=== PATIENT | male | born 1955 | race Caucasian/White ===

== ENCOUNTER 2016-05-10 15:51 | Observation (INO) | payer OTHER ==
[2016-05-10] MEDS ORDERED: NS 1,000 ML IV ONE (16:23)
--- NOTE | 2016-05-10 16:24 | EDPHY ---
H & P Time Seen by Provider: 05/10/16 16:05 HPI/ROS: CHIEF COMPLAINT: Abdominal pain HISTORY OF PRESENT ILLNESS: Awakened at 4:00 a.m. with sharp right lower quadrant crampy abdominal pain. Does not radiate. Did not eat or drink anything so does not know if it is better worse with oral intake but does definitely get worse with movement or walking. Symptoms mild at rest but moderate to severe with movement. Not associated with vomiting or diarrhea or urinary symptoms. REVIEW OF SYSTEMS: Eye: no change in vision ENT: Dry throat. Cardiac: no chest pain or syncope Pulmonary: no cough or SOB Abdomen: HPI Musculoskeletal: no back pain Skin: no rash Neuro: no headache Constitutional: no fever : no urinary symptoms A comprehensive 10 point review of systems is otherwise negative aside from elements mentioned in the history of present illness. PAST MEDICAL HISTORY: Ablation, hypertension, coronary disease with stenting, hyperlipidemia. Micro diskectomy back surgery, bilateral shoulder surgery, inguinal hernia repair by Dr. Stephane Leblanc. Social history: No tobacco. General Appearance: Alert and conversant, cooperative. Eyes: No scleral icterus. ENT, Mouth: Normal mucous membranes. Respiratory: Normal respiratory effort, breath sounds equal, lungs are clear to auscultation. Cardiovascular: Regular rate and rhythm. Gastrointestinal: Right lower quadrant tenderness, referred right lower quadrant pain with left lower quadrant palpation, guarding present and no rebound. Decreased bowel sounds. Normal femoral pulses and no inguinal hernia appreciated. Neurological: Alert and oriented x3. Normally conversant. Face symmetric, normal movement and sensation in all extremities. Skin: Warm and dry, no rashes. Musculoskeletal: No peripheral edema and no joint swelling. Psychiatric: Not agitated. Emergency Department course/MDM: Moderate to high clinical suspicion for appendicitis, plan for i-STAT and CT abdomen pelvis. 1715: Results discussed with patient. Surgical consultation with Dr. biggs who is on-call for his surgeon Dr. Leblanc. Invanz 1 g IV. Smoking Status: Never smoked Constitutional: Initial Vital Signs Temperature (C) 36.9 C 05/10/16 15:58 Heart Rate 78 05/10/16 15:58 Respiratory Rate 16 05/10/16 15:58 Blood Pressure 131/89 H 05/10/16 15:58 O2 Sat (%) 97 05/10/16 15:58 O2 Delivery Mode Room Air Allergies/Adverse Reactions: lobster Allergy (Uncoded 06/07/16 07:15) Home Medications: Medication Instructions Recorded Atorvastatin Calcium [Lipitor 80 80 mg PO HS 10/13/14 mg] Herbals/Supplements -Info Only 1 ea PO DAILY@10/13/14 Losartan Potassium [Cozaar] 50 mg PO DAILY@10/13/14 Multivitamins [Multivitamin (*)] 1 each PO HS 10/13/14 [place]-3 Fatty Acids [Fish Oil 1000 2,000 mg PO DAILY@10/13/14 mg (*)] Cholecalciferol Vit D3 [Vitamin D3 1,000 units PO DAILY 08/23/15 (*)] Aspirin EC [Aspirin EC 325 mg (*)] 325 mg PO HS 02/02/16 Albuterol [Proventil Inhaler HFA 1 - 2 puffs IH Q4H PRN 05/10/16 (*)] Sildenafil Citrate [Viagra] 100 mg PO HS PRN 05/10/16 Medical Decision Making - Diagnostics Imaging: CT reviewed personally by myself and with Dr. Gann at 5:10 p.m. shows early appendicitis. Differential Diagnosis: Differential diagnosis considered for abdominal pain including but not limited to appendicitis, cholecystitis, pancreatitis, gastritis and urinary tract infection. Consult/Admit Bed Type: [place] [id number] - Data Points Laboratory Results: Laboratory Results 05/10/16 16:12 05/10/16 16:12 05/10/16 05/10/16 05/10/16 16:20 16:12 16:12 WBC 7.97 10^3/uL 10^3/uL (3.80-9.50) RBC 5.28 10^6/uL 10^6/uL (4.40-6.38) Hgb 15.8 g/dL g/dL (13.7-17.5) POC Hgb 16.0 gm/dL gm/dL (14.5-17.3) Hct 46.0 % % (40.0-51.0) POC Hct 47 % % (42.8-50.6) MCV 87.1 fL fL (81.5-99.8) MCH 29.9 pg pg (27.9-34.1) MCHC 34.3 g/dL g/dL (32.4-36.7) RDW 13.2 % % (11.5-15.2) Plt Count 205 10^3/uL 10^3/uL (150-400) MPV 9.4 fL fL (8.7-11.7) Neut % (Auto) 72.5 % % (39.3-74.2) Lymph % (Auto) 19.1 % % (15.0-45.0) Mower % (Auto) 7.2 % % (4.5-13.0) Eos % (Auto) 0.4 % L % (0.6-7.6) Baso % (Auto) 0.5 % % (0.3-1.7) Nucleat RBC Rel Count 0.0 % % (0.0-0.2) Absolute Neuts (auto) 5.79 10^3/uL 10^3/uL (1.70-6.50) Absolute Lymphs (auto) 1.52 10^3/uL 10^3/uL (1.00-3.00) Absolute Monos (auto) 0.57 10^3/uL 10^3/uL (0.30-0.80) Absolute Eos (auto) 0.03 10^3/uL 10^3/uL (0.03-0.40) Absolute Basos (auto) 0.04 10^3/uL 10^3/uL (0.02-0.10) Absolute Nucleated RBC 0.00 10^3/uL 10^3/uL (0-0.01) Immature Gran % 0.3 % % (0.0-1.1) Immature Gran # 0.02 10^3/uL 10^3/uL (0.00-0.10) POC Sodium 142 mEq/L mEq/L (134-144) Sodium 141 mEq/L mEq/L (134-144) POC Potassium 3.8 mEq/L mEq/L (3.3-5.0) Potassium 4.2 mEq/L mEq/L (3.5-5.2) POC Chloride 103 mEq/L mEq/L (96-108) Chloride 104 mEq/L mEq/L (97-110) Carbon Dioxide 24 mEq/l mEq/l (22-31) Anion Gap 13 mEq/L mEq/L (8-16) POC BUN 15 mg/dL mg/dL (7-23) BUN 15 mg/dL mg/dL (7-23) Creatinine 0.9 mg/dL mg/dL (0.7-1.3) POC Creatinine 1.0 mg/dL mg/dL (0.8-1.5) Estimated GFR > 60 Glucose 90 mg/dL mg/dL (70-100) POC Glucose 93 mg/dL mg/dL (70-100) Calcium 10.0 mg/dL mg/dL (8.5-10.4) Medications Given: Discontinued Medications Sodium Chloride (Ns) 1,000 mls @ 0 mls/hr IV ONCE ONE PRN Reason: Wide Open Stop: 05/10/16 16:24 Last Admin: 05/10/16 16:35 Dose: 1,000 mls Ertapenem 1 gm/ Sodium (Chloride) 100 mls @ 200 mls/hr IV EDNOW ONE PRN Reason: Protocol Stop: 05/10/16 17:43 Last Admin: 05/10/16 20:12 Dose: Not Given Point of Care Test Results: 05/10/16 16:20 POC Sodium 142 POC Potassium 3.8 POC Chloride 103 POC BUN 15 POC Creatinine 1.0 POC Glucose 93 Departure - Departure Disposition: To OP Cath/Surgery Clinical Impression: Acute appendicitis Qualifiers: Acute appendicitis type: with localized peritonitis Qualified Code(s): K35.3 - Acute appendicitis with localized peritonitis Condition: Good
[2016-05-10 16:30] LABS: % IMMATURE GRANULYOCYTES 0.3 % (0.0-1.1); ABSOLUTE IMMATURE GRANULOCYTES 0.02 10^3/uL (0.00-0.10); ADD DIFF? NO; ADD MORPH? NO; ADD SCAN? NO; ATYPICAL LYMPHOCYTE FLAG 10 (0-99); FRAGMENT RBC FLAG 0 (0-99); HEMOGLOBIN 15.8 g/dL (13.7-17.5); LEFT SHIFT FLG 0 (0-99); LIPEMIA HEMOLYSIS FLAG 90 (0-99); MEAN CELL HEMOGLOBIN 29.9 pg (27.9-34.1); MEAN CELL HEMOGLOBIN CONCENTR. 34.3 g/dL (32.4-36.7); MEAN CELL VOLUME 87.1 fL (81.5-99.8); MEAN PLATELET VOLUME 9.4 fL (8.7-11.7); PLATELET CLUMPS FLAG 30 (0-99); PLATELET COUNT 205 10^3/uL (150-400); RED BLOOD CELL COUNT 5.28 10^6/uL (4.40-6.38); RED CELL DISTRIBUTION WIDTH 13.2 % (11.5-15.2)
[2016-05-10] MEDS ORDERED: IOPAMIDOL (ISOVUE-300) 100 ML BTL IV ONE (16:40)
[2016-05-10 16:51] LABS: ANION GAP 13 mEq/L (8-16); CARBON DIOXIDE 24 mEq/l (22-31); CHLORIDE 104 mEq/L (97-110); CREATININE 0.9 mg/dL (0.7-1.3); GLOMERULAR FILTRATION RATE > 60; GLUCOSE 90 mg/dL (70-100); POTASSIUM 4.2 mEq/L (3.5-5.2); SODIUM 141 mEq/L (134-144)
[2016-05-10] MEDS ORDERED: ERTAPENEM 1 GM in NS 100 ML IV ONE (17:14)
[2016-05-10] MEDS ORDERED: BUPIVACAINE 0.5% 30 ML SDV ONE (18:04)
[2016-05-10] MEDS ORDERED: PROPOFOL/EMULSION 500 MG/50 ML BOTTLE IV ONE (18:17)
[2016-05-10] MEDS ORDERED: fentaNYL 100 MCG/2 ML INJ ONE ×2 (18:17)
[2016-05-10] MEDS ORDERED: MIDAZOLAM 2 MG/2 ML VIAL ONE (18:19)
[2016-05-10] MEDS ORDERED: HYDROCODONE/APAP 5/325 TAB PO PRN (18:19)
[2016-05-10] MEDS ORDERED: ONDANSETRON 4 MG/2 ML VIAL IVP PRN (18:19)
[2016-05-10] MEDS ORDERED: ACETAMINOPHEN 325 MG TAB PO PRN (18:19)
[2016-05-10] MEDS ORDERED: D5W 1/2 NS W/ 20 KCl/L 1,000 ML IV SCH (18:30)
[2016-05-10] MEDS ORDERED: METOCLOPRAMIDE 10 MG/2 ML VIAL ONE (18:50)
[2016-05-10] MEDS ORDERED: DEXAMETHASONE 4 MG/ML VIAL ONE (18:50)
[2016-05-10] MEDS ORDERED: ROCURONIUM 50 MG/5 ML VIAL ONE (18:50)
[2016-05-10] MEDS ORDERED: SUGAMMADEX SODIUM 200 MG/2 ML VIAL IVP ONE (18:50)
--- NOTE | 2016-05-10 18:52 | GHP ---
DATE OF ADMISSION: 05/10/2016 CHIEF COMPLAINT: Acute appendicitis. HISTORY OF PRESENT ILLNESS: Mr. Mendieta is a 60-year-old man who awoke with abdominal pain. This mo rning he did not eat. His pain persisted and nothing made it better, nothing made it worse. He had no nausea. Presented to the ER. CT scan was obtained, which showed early appendicitis. He has rainey d a cold and then developed a sinus infection and bronchitis; he feels that he has been over at 1 we [address]. PAST MEDICAL HISTORY: Coronary artery disease. PAST SURGICAL HISTORY: L5-S1 microdiskectomy, angioplasty, right shoulder surgery, bilateral inguin al hernia repair. MEDICATIONS: Plavix, losartan, Zocor, Nasonex, fish oil. ALLERGIES: No known drug allergies. SOCIAL HISTORY: He is . He is a nonsmoker. 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 REVIEW OF SYSTEMS: Other than abdominal pain, his review of systems is negative. PHYSICAL EXAM: GENERAL: Well developed, well nourished, well-groomed male. HEENT: Normocephalic. No gross hearing deficits. Mucous membranes moist. Pupils equal and round. No scleral icterus. LUNGS: Clear to auscultation bilaterally. No increased work of breathing. CARDIAC: Regular rate . ABDOMEN: Soft. He is tender in the right lower quadrant. He has a positive Rovsing sign. LABORATORY DATA: Results reviewed. I reviewed a CBC which is normal. I reviewed a CT scan which s howed early appendicitis. IMPRESSION AND PLAN: Moses Mendieta is a 60-year-old man with acute appendicitis. I will take him to the operating room for laparoscopic appendectomy. The risks and benefits, including, but not limit ed to, stroke, heart attack, , blood clots, infection, bleeding were discussed. He had his que stions answered to his satisfaction and signed the informed consent. He will have Invanz. /[id number]/MODL
[2016-05-10] MEDS ORDERED: SKIN ADHESIVE (DERMABOND) 1 EACH TP ONE (18:55)
--- NOTE | 2016-05-10 20:17 | GOP ---
DATE OF OPERATION: 05/10/2016 SURGEON: Bibiana Phelan MD ANESTHESIA: General. ANESTHESIOLOGIST: Terri Prado MD PREOPERATIVE DIAGNOSIS: Acute appendicitis. POSTOPERATIVE DIAGNOSIS: Acute appendicitis. PROCEDURE PERFORMED: Laparoscopic appendectomy. FINDINGS: Inflamed appendix. SPECIMENS: Appendix. ESTIMATED BLOOD LOSS: 5 cc INDICATIONS: The patient is a 60-year-old man who awoke with a stomachache that progressed throughout the day. He had a CT scan which showed acute appendicitis. DESCRIPTION OF PROCEDURE: The patient was brought into the operating room, placed supine on the table, and general anesthesia was administered. His abdomen was prepped and draped in the usual sterile fashion. I infiltrated all sites with 0.5% Marcaine prior to making incisions. I made an incision in his left lower quadrant. I inserted the Veress needle; it passed the hanging drop test. His abdomen insufflated easily to a pressure of 15 mmHg. I placed a 10 mm trocar with the camera at this site. There were no injuries noted. Under direct vision, I placed a 5 mm umbilical trocar and a 5 mm suprapubic trocar. There were no intrabdominal adhesions. His mesh from his spigelian hernia was well incorporated, His cecum was higher in the right upper quadrant. I was able to grasp the tip of the appendix. I created a window in the mesoappendix. I divided the appendix with an Endo-ROSARIO 45 white load. I divided the mesoappendix with the Harmonic Scalpel. I placed it in an EndoCatch bag and retrieved it via the 10 mm trocar. Hemostasis was achieved at the staple line. I removed the ports under direct vision, allowed the abdomen to desufflate. I closed the fascia at the 10 mm trocar site with 0 Vicryl. I closed the skin with 4-0 Monocryl. Dermabond applied. He was awakened in the operating room, extubated, transferred to PACU in stable condition. /[id number]/MODL MTDD
[2016-05-11 04:22] VITALS: PULSE 66
[2016-05-11 07:36] VITALS: BP 126/85; RESP 16; TEMP 98.2; O2SAT 96
--- NOTE | 2016-05-11 08:37 | SOAPPROG ---
SOAP Progress Note Assessment/Plan: Assessment: 60yo M POD#1 s/p lap appy pain controlled regular diet d/c home today. follow-up 2 weeks. avoid heavy lifting, pushing pulling x [address]. [address] Phelan Already has an appt with Dr. Leblanc next week - he will follow-up with Dr. Phelan PRN S: feeling well. not using rx pain meds. tolerating regular diet O: laying in bed, comfortable, nad no increased wob abd softly distended, nontender. incisions cdi 05/11/16 10:37 Objective: Vital Signs Temp Pulse Resp BP Pulse Ox 36.8 C 66 16 126/85 H 96 05/11/16 07:34 05/11/16 07:34 05/11/16 07:34 05/11/16 07:34 05/11/16 07:34 05/10/16 05/11/16 05/12/16 05:59 05:59 05:59 Intake Total 1999 Output Total 1005 Balance 995 ICD10 Worksheet Patient Problems: Problems Problem Status Onset Acute appendicitis Acute Angina effort Acute CAD (coronary artery disease) Acute Dyslipidemia Acute Hypertension Acute
== END 2016-05-11 10:39 | disposition home or self-care (01) ==
LOC: F3E 19:57
PROVIDERS: ADMIT Surgery; ATTEND Surgery
PROC: 0DTJ4ZZ Resection of Appendix, Percutaneous Endoscopic Approach (ICD-10-PCS; principal; 2016-05-10 18:30)
DX: K35.80 Unspecified acute appendicitis (principal); I25.10 Atherosclerotic heart disease of native coronary artery without angina pectoris; I10 Essential (primary) hypertension; Z95.5 Presence of coronary angioplasty implant and graft
CPT/HCPCS: 44970; 74177; G0378; 82947-QW; J1100; J1335; J2250; J2704; J2765; J3010; Q9967

== ENCOUNTER → 2017-03-01 | Outpatient (CLI) | payer OTHER ==
[~2017-03-01] MED LIST: IOPAMIDOL (ISOVUE-300) 100 ML BTL ONE
== END ==
LOC: FIMAGING 14:09
PROVIDERS: ATTEND Internal Medicine
DX: M25.551 Pain in right hip (principal)
CPT/HCPCS: Q9967